=== PATIENT | female | born 1940 | race Caucasian/White ===

== ENCOUNTER 2018-12-16 09:16 | Day surgery (SDC) | payer BC, MEDICARE ==
[2018-12-15 14:46] LABS: BASOPHILS # (AUTO) 0.1 X10'3 (0-0.2); BASOPHILS % (AUTO) 1.4 % (0-1); EOSINOPHILS # (AUTO) 0.2 X10'3 (0-0.9); EOSINOPHILS % (AUTO) 4.2 % (0-6); LYMPHOCYTES # (AUTO) 1.5 X10'3 (1.1-4.8); MEAN CORPUSCULAR HEMOGLOBIN 30.6 PG (27.0-31.0); MEAN CORPUSCULAR HGB CONC 33.6 g/dL (33.0-36.5); MONOCYTES # (AUTO) 0.4 X10'3 (0-0.9); MONOCYTES % (AUTO) 10.2 % (2-12); NEUTROPHILS # (AUTO) 1.8 X10'3 (1.8-7.7); NEUTROPHILS % (AUTO) 45.2 % (42-75); PRE OP HEMATOCRIT 41.6 % (35.0-45.0); PRE OP PLATELET COUNT 273 X10'3 (140-440); RED BLOOD COUNT 4.57 X10'6 (4.20-5.60); RED CELL DISTRIBUTION WIDTH 12.8 % (11.5-14.5)
[2018-12-15 14:59] LABS: ALBUMIN 3.7 G/DL (3.4-5.0); ALBUMIN/GLOBULIN RATIO 1.1 (1.1-1.5); ALKALINE PHOSPHATASE 60 IU/L (46-116); BLOOD UREA NITROGEN 15 MG/DL (7-18); BUN/CREATININE RATIO 16.5 (6.6-38.0); CALCIUM 8.9 MG/DL (8.5-10.1); CHLORIDE 105 MMOL/L (99-107); CREATININE 0.91 MG/DL (0.40-0.90); PRE OP ALT 25 U/L (30-65); PRE OP ANION GAP 6 (8-16); PRE OP AST 21 U/L (10-37); PRE OP BILIRUB, TOTAL 0.4 MG/DL (0.0-1.0); PRE OP GLUCOSE 120 MG/DL (70-104); PRE OP POTASSIUM 3.6 MMOL/L (3.4-5.1); PRE OP SODIUM 142 MMOL/L (135-145); TOTAL CARBON DIOXIDE 30.9 MMOL/L (24-32); TOTAL PROTEIN 7.1 G/DL (6.4-8.2); eGFR 60 ML/MIN
[~2018-12-16] VITALS: Ht 167.6 cm; Wt 68.0 kg
[~2018-12-16 09:16] MED LIST: CHOL10002 PO; MULT-1085 PO; NIA500ERT PO; ceFAZolin 1GM/D5W- ADD-VANTAGE 50 ML IV ONE; famotidine 20mg tablet PO ONE; ringers solution, lacted 1,000 ML IV SCH
[2018-12-16 09:45] VITALS: BP 147/87
[2018-12-16] MEDS ORDERED: ringers solution, lacted 1,000 ML IV SCH (10:29)
[2018-12-16] MEDS ORDERED: morphine 4 MG/ML inj SYRINge IV PRN (10:30)
[2018-12-16] MEDS ORDERED: ondansetron/PF 4mg/2ml inj IV PRN (10:30)
[2018-12-16] MEDS ORDERED: BUPIVAcaine/PF 2.5mg/ml (0.25%) 10ml vial ONE (11:37)
[2018-12-16] MEDS ORDERED: midazolam 2 mg/2 ml injection ONE (12:04)
[2018-12-16] MEDS ORDERED: fentaNYL/PF 50MCG/1 ML 2ML syringe ONE (12:04)
[2018-12-16] MEDS ORDERED: LIDOcaine 1% 30ml preserv. free vial ONE (12:08)
[2018-12-16 12:28] VITALS: BP 120/62
--- NOTE | 2018-12-16 12:28 | NUR ---
Received from OR via , accompanied by Anesthesiologist DR DONALDSON and report given by Anesthesiolgist. PT IS AWAKE, ALERT, MOVES EXT X 4, SKIN COOL TO TOUCH, GOOD COLOR AND MOTION, PROVIDED WARM BLANKETS FOR PATIENT, PIV RIGHT 20G PATENT WITH LR 100ML/HR, NO C/O PAIN.
[2018-12-16 12:38] VITALS: BP 134/77
[2018-12-16] MEDS ORDERED: propofol inj 20 ML IV ONE (12:38)
[2018-12-16 12:48] VITALS: BP 128/68
[2018-12-16 12:58] VITALS: BP 146/75
--- NOTE | 2018-12-16 12:58 | NUR ---
PATIENT IS AWAKE AND ORIENTED, NO C/O PAIN, PIV REMOVED, UP INDEP TO GET DRESSED, DISCHARGE INSTRUCTIONS REVIEWED WITH PATIENT, ICE SENT HOME WITH PT, NO C/O PAIN.
== END 2018-12-16 12:58 | disposition home or self-care (01) ==
LOC: PRE-OP 09:16
PROVIDERS: ATTEND Orthopaedic Surgery Hand Surgery
DX: G56.03 Carpal tunnel syndrome, bilateral upper limbs (principal); M19.042 Primary osteoarthritis, left hand; Z87.891 Personal history of nicotine dependence; Z72.89 Other problems related to lifestyle; Z79.899 Other long term (current) drug therapy; Z98.890 Other specified postprocedural states
CPT/HCPCS: 36415; 64721; 80053; 82948; 85025; 93005; A6222; A6449; J0690; J2250; J2704; J3010; J3490; J7120

== ENCOUNTER 2019-03-03 08:34 | Day surgery (SDC) | payer MEDICARE, BC ==
[2019-02-24 10:51] LABS: BASOPHILS # (AUTO) 0.1 X10'3 (0-0.2); BASOPHILS % (AUTO) 1.1 % (0-1); EOSINOPHILS # (AUTO) 0.1 X10'3 (0-0.9); EOSINOPHILS % (AUTO) 2.6 % (0-6); LYMPHOCYTES # (AUTO) 1.6 X10'3 (1.1-4.8); LYMPHOCYTES % (AUTO) 32.4 % (21-51); MEAN CORPUSCULAR HEMOGLOBIN 31.3 PG (27.0-31.0); MEAN CORPUSCULAR HGB CONC 34.5 g/dL (33.0-36.5); MEAN CORPUSCULAR VOLUME 90.9 FL (78-98); MONOCYTES # (AUTO) 0.6 X10'3 (0-0.9); NEUTROPHILS # (AUTO) 2.6 X10'3 (1.8-7.7); NEUTROPHILS % (AUTO) 51.9 % (42-75); PRE OP HEMATOCRIT 41.8 % (35.0-45.0); PRE OP HEMOGLOBIN 14.4 g/dL (12.0-16.0); PRE OP PLATELET COUNT 253 X10'3 (140-440); RED CELL DISTRIBUTION WIDTH 14.1 % (11.5-14.5)
[2019-02-24 11:05] LABS: ALBUMIN 3.7 G/DL (3.4-5.0); ALKALINE PHOSPHATASE 62 IU/L (46-116); BLOOD UREA NITROGEN 14 MG/DL (7-18); BUN/CREATININE RATIO 20.6 (6.6-38.0); CALCIUM 8.9 MG/DL (8.5-10.1); CHLORIDE 102 MMOL/L (99-107); CREATININE 0.68 MG/DL (0.40-0.90); PRE OP ALT 31 U/L (30-65); PRE OP ANION GAP 3 (8-16); PRE OP AST 24 U/L (10-37); PRE OP BILIRUB, TOTAL 0.4 MG/DL (0.0-1.0); PRE OP GLUCOSE 96 MG/DL (70-104); PRE OP POTASSIUM 4.2 MMOL/L (3.4-5.1); PRE OP SODIUM 135 MMOL/L (135-145); TOTAL CARBON DIOXIDE 29.9 MMOL/L (24-32); TOTAL PROTEIN 7.3 G/DL (6.4-8.2); eGFR 84 ML/MIN
[~2019-03-03] VITALS: Ht 167.6 cm; Wt 68.0 kg
[~2019-03-03 08:34] MED LIST changes: +LIDOcaine 1% 30ml preserv. free vial ONE; -ceFAZolin 1GM/D5W- ADD-VANTAGE 50 ML IV ONE; -famotidine 20mg tablet PO ONE; -ringers solution, lacted 1,000 ML IV SCH
[2019-03-03 08:50] VITALS: BP 138/73
[2019-03-03] MEDS ORDERED: ringers solution, lacted 1,000 ML IV SCH (09:15)
[2019-03-03] MEDS ORDERED: famotidine 20mg tablet PO ONE (09:15)
[2019-03-03] MEDS ORDERED: ceFAZolin 1GM/D5W- ADD-VANTAGE 50 ML IV ONE (09:15)
[2019-03-03] MEDS ORDERED: BUPIVAcaine/PF 2.5mg/ml (0.25%) 10ml vial ONE (09:58)
[2019-03-03] MEDS ORDERED: fentaNYL/PF 50MCG/1 ML 2ML syringe ONE (10:09)
[2019-03-03] MEDS ORDERED: midazolam 2 mg/2 ml injection ONE ×2 (10:10→10:21)
[2019-03-03 10:40] VITALS: BP 129/58
--- NOTE | 2019-03-03 10:40 | NUR ---
Received from OR via [facility] , accompanied by Anesthesiologist YUNIOR and report given by Anesthesiolgist. PATIENT WITH 20G PIV IN RIGHT UE RUNNING LR AT 100. DENIES PAIN. VSS. RIGHT WRIST DRESSING IS CDI. NUMBNESS TO FINGERS BUT HAS + MOVEMENT. Addendum: 03/03/19 at 1048 by Tom Vallejo RN, RN Amended: Links added.
[2019-03-03 10:50] VITALS: BP 128/80
[2019-03-03 11:00] VITALS: BP 122/78
--- NOTE | 2019-03-03 11:10 | NUR ---
ALL DC CRITERIA HAS BEEN MET. IV TAKEN OUT WITHOUT COMPLICATIONS. ALL INSTRUCTIONS COVERED AND ALL QUESTIONS ANSWERED. DRESSINGS CDI. OUT VIA WHEELCHAIR TO PERSONAL VEHICLE WHERE PATIENT WAS SECURED IN AND DRIVEN HOME BY FAMILY. Addendum: 03/03/19 at 1124 by Tom Vallejo RN, RN Amended: Links added.
== END 2019-03-03 11:10 | disposition home or self-care (01) ==
LOC: PAS 08:34
PROVIDERS: ATTEND Orthopaedic Surgery Hand Surgery
DX: G56.01 Carpal tunnel syndrome, right upper limb (principal); M19.042 Primary osteoarthritis, left hand; Z98.890 Other specified postprocedural states; Z87.891 Personal history of nicotine dependence; Z72.89 Other problems related to lifestyle; Z79.899 Other long term (current) drug therapy; Z85.3 Personal history of malignant neoplasm of breast
CPT/HCPCS: 36415; 64721; 80053; 82948; 85025; A6222; J0690; J2250; J3010; J3490; A6449; J7120

== ENCOUNTER 2023-11-08 13:27 | Outpatient (CLI) | payer BC, MEDICARE ==
[~2023-11-08 13:27] MED LIST changes: -LIDOcaine 1% 30ml preserv. free vial ONE
[2023-11-08] MEDS ORDERED: iohexol 300mg/ml 100ml inj. ONE (13:45)
== END 2023-11-08 23:59 | disposition home or self-care (01) ==
LOC: RAD 13:27
PROVIDERS: ATTEND Student in an Organized Health Care Education/Training Program
DX: K76.89 Other specified diseases of liver (principal); R10.31 Right lower quadrant pain
CPT/HCPCS: 74178; J3490; Q9967

== ENCOUNTER 2023-11-09 17:55 | Inpatient (IN) | payer MEDICARE, BC ==
[~2023-11-09] VITALS: Ht 167.6 cm; Wt 68.0 kg
[2023-11-09 19:46] LABS: BASOPHILS % (AUTO) 0.4 % (0-1); EOSINOPHILS # (AUTO) 0.2 X10'3 (0-0.9); EOSINOPHILS % (AUTO) 1.9 % (0-6); HEMATOCRIT 37.8 % (35.0-45.0); HEMOGLOBIN 12.8 g/dl (12.0-16.0); LYMPHOCYTES # (AUTO) 1.1 X10'3 (1.1-4.8); LYMPHOCYTES % (AUTO) 12.2 % (21-51); MEAN CORPUSCULAR VOLUME 91.1 FL (78-98); MEAN PLATELET VOLUME 7.5 FL (7.4-10.4); MONOCYTES # (AUTO) 0.7 X10'3 (0-0.9); MONOCYTES % (AUTO) 7.9 % (2-12); NEUTROPHILS # (AUTO) 6.8 X10'3 (1.8-7.7); NEUTROPHILS % (AUTO) 77.6 % (42-75); PLATELET COUNT 401 X10'3 (140-440); RED BLOOD COUNT 4.15 X10'6 (4.20-5.60); RED CELL DISTRIBUTION WIDTH 12.7 % (11.5-14.5); WHITE BLOOD COUNT 8.8 X10'3 (4.5-11.0)
[2023-11-09 19:56] LABS: ALANINE AMINOTRANSFERASE 21 U/L (12-78); ALBUMIN 3.2 G/DL (3.4-5.0); ALBUMIN/GLOBULIN RATIO 0.7 (1.1-1.5); ALKALINE PHOSPHATASE 72 IU/L (46-116); ANION GAP 7 (8-16); ASPARTATE AMINO TRANSFERASE 16 U/L (10-37); BILIRUBIN,TOTAL 0.4 MG/DL (0.1-1.0); BLOOD UREA NITROGEN 4 MG/DL (7-18); BUN/CREATININE RATIO 6.8 (10.0-20.0); CALCIUM 8.9 MG/DL (8.5-10.1); CHLORIDE 100 MMOL/L (99-107); CREATININE 0.59 MG/DL (0.40-0.90); GLUCOSE 110 MG/DL (70-104); LIPASE 19 U/L (16-77); POTASSIUM 4.1 MMOL/L (3.5-5.1); SODIUM 137 MMOL/L (135-145); TOTAL PROTEIN 7.6 G/DL (6.4-8.2); eCRCL 69 ML/MIN; eGFR > 90 ML/MIN
[2023-11-10] MEDS: diatr meglu/diatrizoate 30ml oral sol.-(3 dose) bottle PO SCH (00:21)
[2023-11-10] MEDS ORDERED: iohexol 300mg/ml 100ml inj. ONE ×2 (01:46→12:27)
[2023-11-10 02:15] LABS: BILIRUBIN,URINE NEGATIVE (Neg); CLARITY,URINE CLEAR (Clear); COLOR,URINE YELLOW (Yellow); GLUCOSE, URINE NEGATIVE (Neg); KETONES,URINE NEGATIVE (Neg); LEUKOCYTE ESTERASE ,URINE NEGATIVE (Neg); NITRITES, URINE NEGATIVE (Neg); OCCULT BLOOD,URINE NEGATIVE (Neg); PROTEIN,URINE NEGATIVE (Neg); UROBILINOGEN,URINE 0.2 E.U/dL (0.2-1.0)
[2023-11-10 02:16] LABS: UA COLLECTION TYPE CLN CATCH MIDSTREAM
[2023-11-10] MEDS ORDERED: mag hydrox/Alum hydrox/simeth 30ml oral suspension PO PRN (05:00)
[2023-11-10] MEDS ORDERED: potassium Cl 20 mEq SR tablet PO PRN ×2 (05:00)
[2023-11-10] MEDS ORDERED: ondansetron/PF 4mg/2ml inj IV PRN (05:00)
[2023-11-10] MEDS ORDERED: magnesium Cl slow-release 64mg tablet PO PRN (05:00)
[2023-11-10] MEDS ORDERED: acetaminophen 325mg tablet PO PRN (05:00)
[2023-11-10] MEDS ORDERED: potassium Cl 40MEQ/1/2NS 520ml 520 ML IV PRN (05:00)
[2023-11-10] MEDS ORDERED: magnesium 2GM in 50ml NS 50 ML IV PRN (05:00)
[2023-11-10] MEDS ORDERED: magnesium 4gm in 100ml NS 100 ML IV PRN (05:00)
[2023-11-10] MEDS ORDERED: magnesium hydroxide 30ml (MOM) UD suspension PO PRN (05:00)
[2023-11-10] MEDS ORDERED: morphine 2 MG/ML inj. syringe IV PRN ×2 (05:00)
[2023-11-10] MEDS: piperacillin/tazo 3.375gm/50ml 50 ML IV ONE (05:17)
[2023-11-10] MEDS: ondansetron/PF 4mg/2ml inj IV ONE (05:25)
[2023-11-10] MEDS: morphine 4 MG/ML inj SYRINge IV ONE (05:25)
[2023-11-10] MEDS: normal saline 1000ml 1,000 ML IV SCH (05:32)
[2023-11-10] MEDS: K and/or MAG REPLACEMENT MC SCH (08:00)
[2023-11-10] MEDS: diatrozoate meglu/diatrozoate sod (37% iodine) 120ML oral solution PO ONE (10:07)
[2023-11-10] MEDS: diatr meglu/diatrizoate 30ml oral sol.-(3 dose) bottle PO ONE (10:07)
[2023-11-10 11:38] VITALS: BP 125/88; PULSE 81; RESP 16; O2SAT 100
[2023-11-10] MEDS ORDERED: fentaNYL/PF 50MCG/1 ML 2ML syringe ONE ×2 (11:39→12:53)
[2023-11-10] MEDS ORDERED: midazolam 1 mg/ML 2ml injection ONE (11:39)
[2023-11-10] MEDS: piperacillin/tazo 4.5gm/100ml 100 ML IV SCH (12:00)
[2023-11-10 12:40] VITALS: BP 130/70; PULSE 85; RESP 16; O2SAT 99
[2023-11-10 12:45] VITALS: BP 147/74; PULSE 87; RESP 16; O2SAT 99
[2023-11-10 12:50] VITALS: BP 149/63; PULSE 89; RESP 16; O2SAT 97
[2023-11-10 12:55] VITALS: BP 148/84; PULSE 91; RESP 16; O2SAT 97
[2023-11-10 13:00] VITALS: BP 153/77; PULSE 91; RESP 16; O2SAT 96
[2023-11-10] MEDS: temazepam 15mg capsule PO ONE (21:01)
[2023-11-11 07:58] LABS: BASOPHILS % (AUTO) 0.4 % (0-1); EOSINOPHILS # (AUTO) 0.1 X10'3 (0-0.9); HEMATOCRIT 38.2 % (35.0-45.0); HEMOGLOBIN 12.7 g/dl (12.0-16.0); LYMPHOCYTES # (AUTO) 0.9 X10'3 (1.1-4.8); MEAN CORPUSCULAR HEMOGLOBIN 31.1 PG (27.0-31.0); MEAN CORPUSCULAR HGB CONC 33.3 g/dL (33.0-36.5); MEAN CORPUSCULAR VOLUME 93.3 FL (78-98); MEAN PLATELET VOLUME 7.6 FL (7.4-10.4); MONOCYTES # (AUTO) 0.8 X10'3 (0-0.9); MONOCYTES % (AUTO) 7.6 % (2-12); NEUTROPHILS # (AUTO) 8.5 X10'3 (1.8-7.7); PLATELET COUNT 377 X10'3 (140-440); RED BLOOD COUNT 4.09 X10'6 (4.20-5.60); RED CELL DISTRIBUTION WIDTH 13.2 % (11.5-14.5); WHITE BLOOD COUNT 10.4 X10'3 (4.5-11.0)
[2023-11-11 08:36] LABS: ALBUMIN 2.6 G/DL (3.4-5.0); ANION GAP 14 (8-16); BLOOD UREA NITROGEN 7 MG/DL (7-18); BUN/CREATININE RATIO 10.8 (10.0-20.0); CALCIUM 8.4 MG/DL (8.5-10.1); CHLORIDE 102 MMOL/L (99-107); CREATININE 0.65 MG/DL (0.40-0.90); GLUCOSE 82 MG/DL (70-104); MAGNESIUM 2.3 MG/DL (1.5-2.4); POTASSIUM 3.9 MMOL/L (3.5-5.1); SODIUM 138 MMOL/L (135-145); TOTAL CARBON DIOXIDE 21.8 MMOL/L (24-32); eCRCL 62 ML/MIN; eGFR 87 ML/MIN
[2023-11-11] MEDS ORDERED: ALEN70TA37 PO (19:17)
[2023-11-11] MEDS: Melatonin 3mg tablet PO SCH (20:55)
[2023-11-12 06:31] LABS: BASOPHILS # (AUTO) 0.1 X10'3 (0-0.2); BASOPHILS % (AUTO) 0.7 % (0-1); EOSINOPHILS # (AUTO) 0.2 X10'3 (0-0.9); HEMOGLOBIN 12.6 g/dl (12.0-16.0); LYMPHOCYTES # (AUTO) 0.9 X10'3 (1.1-4.8); MEAN CORPUSCULAR VOLUME 91.6 FL (78-98); RED CELL DISTRIBUTION WIDTH 12.8 % (11.5-14.5)
[2023-11-12 06:34] LABS: EOSINOPHILS % (AUTO) 1.9 % (0-6); HEMATOCRIT 37.5 % (35.0-45.0); MEAN CORPUSCULAR HEMOGLOBIN 30.8 PG (27.0-31.0); MEAN CORPUSCULAR HGB CONC 33.6 g/dL (33.0-36.5); MEAN PLATELET VOLUME 8.2 FL (7.4-10.4); MONOCYTES # (AUTO) 1.1 X10'3 (0-0.9); MONOCYTES % (AUTO) 12.3 % (2-12); NEUTROPHILS # (AUTO) 6.3 X10'3 (1.8-7.7); NEUTROPHILS % (AUTO) 74.1 % (42-75); PLATELET COUNT 392 X10'3 (140-440); RED BLOOD COUNT 4.09 X10'6 (4.20-5.60); WHITE BLOOD COUNT 8.5 X10'3 (4.5-11.0)
[2023-11-12 06:51] LABS: ALBUMIN 2.5 G/DL (3.4-5.0); ANION GAP 10 (8-16); BLOOD UREA NITROGEN 5 MG/DL (7-18); BUN/CREATININE RATIO 8.3 (10.0-20.0); CALCIUM 8.1 MG/DL (8.5-10.1); CHLORIDE 103 MMOL/L (99-107); GLUCOSE 106 MG/DL (70-104); MAGNESIUM 2.4 MG/DL (1.5-2.4); POTASSIUM 3.6 MMOL/L (3.5-5.1); SODIUM 139 MMOL/L (135-145); TOTAL CARBON DIOXIDE 26.3 MMOL/L (24-32); eCRCL 68 ML/MIN; eGFR > 90 ML/MIN
[2023-11-12 08:30] VITALS: BP 137/67; PULSE 91; RESP 17; TEMP 98.3; O2SAT 94
[2023-11-12 10:00] VITALS: BP 116/64; PULSE 92; RESP 15; TEMP 99.1; O2SAT 98
[2023-11-12 18:00] VITALS: BP 119/59; PULSE 89; RESP 18; TEMP 98.8; O2SAT 94
[2023-11-12] MEDS: enoxaparin 40mg/0.4ml syringe SUBCUT SCH (19:51)
[2023-11-12 22:00] VITALS: BP 118/46; PULSE 82; RESP 16; TEMP 98.2; O2SAT 94
[2023-11-13 06:00] VITALS: BP 121/66; PULSE 79; RESP 17; TEMP 97.7; O2SAT 95
[2023-11-13 06:27] LABS: BASOPHILS # (AUTO) 0.1 X10'3 (0-0.2); BASOPHILS % (AUTO) 0.8 % (0-1); EOSINOPHILS # (AUTO) 0.3 X10'3 (0-0.9); EOSINOPHILS % (AUTO) 3.8 % (0-6); HEMATOCRIT 33.6 % (35.0-45.0); HEMOGLOBIN 11.6 g/dl (12.0-16.0); LYMPHOCYTES # (AUTO) 1.1 X10'3 (1.1-4.8); LYMPHOCYTES % (AUTO) 15.3 % (21-51); MEAN CORPUSCULAR HEMOGLOBIN 31.2 PG (27.0-31.0); MEAN CORPUSCULAR HGB CONC 34.4 g/dL (33.0-36.5); MEAN CORPUSCULAR VOLUME 90.9 FL (78-98); MEAN PLATELET VOLUME 8.3 FL (7.4-10.4); MONOCYTES # (AUTO) 0.9 X10'3 (0-0.9); MONOCYTES % (AUTO) 13.3 % (2-12); NEUTROPHILS # (AUTO) 4.6 X10'3 (1.8-7.7); NEUTROPHILS % (AUTO) 66.8 % (42-75); PLATELET COUNT 385 X10'3 (140-440); RED CELL DISTRIBUTION WIDTH 12.3 % (11.5-14.5); WHITE BLOOD COUNT 6.9 X10'3 (4.5-11.0)
[2023-11-13 06:31] LABS: ALBUMIN 2.2 G/DL (3.4-5.0); ANION GAP 4 (8-16); BLOOD UREA NITROGEN 1 MG/DL (7-18); BUN/CREATININE RATIO 1.6 (10.0-20.0); CALCIUM 7.8 MG/DL (8.5-10.1); CHLORIDE 103 MMOL/L (99-107); CREATININE 0.62 MG/DL (0.40-0.90); GLUCOSE 104 MG/DL (70-104); MAGNESIUM 2.1 MG/DL (1.5-2.4); POTASSIUM 3.2 MMOL/L (3.5-5.1); SODIUM 135 MMOL/L (135-145); TOTAL CARBON DIOXIDE 28.5 MMOL/L (24-32); eCRCL 65 ML/MIN; eGFR > 90 ML/MIN
[2023-11-13 07:28] VITALS: RESP 17; O2SAT 95
[2023-11-13] MEDS ORDERED: magnesium Cl slow-release 64mg tablet PO PRN (09:40)
[2023-11-13] MEDS ORDERED: potassium Cl 20 mEq SR tablet PO PRN (09:40)
[2023-11-13] MEDS ORDERED: magnesium 4gm in 100ml NS 100 ML IV PRN (09:40)
[2023-11-13] MEDS ORDERED: magnesium 2GM in 50ml NS 50 ML IV PRN (09:40)
[2023-11-13] MEDS ORDERED: potassium Cl 40MEQ/1/2NS 520ml 520 ML IV PRN (09:40)
[2023-11-13] MEDS: potassium Cl 20 mEq SR tablet PO PRN (09:58)
[2023-11-13 10:00] VITALS: BP 116/57; PULSE 81; RESP 18; TEMP 97.4; O2SAT 96
[2023-11-13] MEDS: metroNIDAZOLE-Flagyl 750mg/NS 150 ML IV SCH (16:05)
[2023-11-13 18:00] VITALS: BP 125/71; PULSE 83; RESP 18; TEMP 97.5; O2SAT 97
[2023-11-13 20:00] VITALS: RESP 17; RESP 18; O2SAT 94; O2SAT 97
[2023-11-13] MEDS: ciprofloxacin lact 400MG/200ML 200 ML IV SCH (20:00)
[2023-11-13 22:02] VITALS: BP 112/57; PULSE 76; RESP 17; TEMP 97.9; O2SAT 94
[2023-11-14 06:00] VITALS: BP 141/64; PULSE 72; RESP 16; TEMP 97.7; O2SAT 96
[2023-11-14 06:55] VITALS: RESP 16; O2SAT 96
[2023-11-14 07:09] LABS: ALBUMIN 2.2 G/DL (3.4-5.0); ANION GAP 9 (8-16); BLOOD UREA NITROGEN 0 MG/DL (7-18); CALCIUM 7.3 MG/DL (8.5-10.1); CHLORIDE 106 MMOL/L (99-107); CREATININE 0.56 MG/DL (0.40-0.90); GLUCOSE 102 MG/DL (70-104); MAGNESIUM 2.2 MG/DL (1.5-2.4); POTASSIUM 4.1 MMOL/L (3.5-5.1); SODIUM 143 MMOL/L (135-145); TOTAL CARBON DIOXIDE 27.7 MMOL/L (24-32); eCRCL 73 ML/MIN; eGFR > 90 ML/MIN
[2023-11-14 07:11] LABS: BASOPHILS # (AUTO) 0.1 X10'3 (0-0.2); BASOPHILS % (AUTO) 1.3 % (0-1); EOSINOPHILS # (AUTO) 0.2 X10'3 (0-0.9); EOSINOPHILS % (AUTO) 4.5 % (0-6); HEMATOCRIT 34.6 % (35.0-45.0); HEMOGLOBIN 11.9 g/dl (12.0-16.0); LYMPHOCYTES # (AUTO) 1.1 X10'3 (1.1-4.8); LYMPHOCYTES % (AUTO) 22.3 % (21-51); MEAN CORPUSCULAR HEMOGLOBIN 31.7 PG (27.0-31.0); MEAN CORPUSCULAR HGB CONC 34.6 g/dL (33.0-36.5); MEAN CORPUSCULAR VOLUME 91.5 FL (78-98); MEAN PLATELET VOLUME 8.5 FL (7.4-10.4); MONOCYTES # (AUTO) 0.7 X10'3 (0-0.9); MONOCYTES % (AUTO) 12.8 % (2-12); NEUTROPHILS % (AUTO) 59.1 % (42-75); PLATELET COUNT 395 X10'3 (140-440); RED BLOOD COUNT 3.77 X10'6 (4.20-5.60); RED CELL DISTRIBUTION WIDTH 12.8 % (11.5-14.5); WHITE BLOOD COUNT 5.1 X10'3 (4.5-11.0)
[2023-11-14 19:23] VITALS: BP 120/58; PULSE 95; RESP 16; TEMP 98.3; O2SAT 95
[2023-11-14 20:00] VITALS: RESP 16; O2SAT 95
[2023-11-14] MEDS: diatr meglu/diatrizoate 30ml oral sol.-(3 dose) bottle PO SCH (20:50)
[2023-11-14 22:00] VITALS: BP 119/65; PULSE 71; RESP 15; TEMP 97.7; O2SAT 96
[2023-11-15 04:45] LABS: ALBUMIN 2.3 G/DL (3.4-5.0); ANION GAP 10 (8-16); BLOOD UREA NITROGEN 2 MG/DL (7-18); BUN/CREATININE RATIO 3.3 (10.0-20.0); CALCIUM 8.4 MG/DL (8.5-10.1); CHLORIDE 107 MMOL/L (99-107); CREATININE 0.61 MG/DL (0.40-0.90); GLUCOSE 113 MG/DL (70-104); POTASSIUM 3.7 MMOL/L (3.5-5.1); SODIUM 144 MMOL/L (135-145); eCRCL 67 ML/MIN; eGFR > 90 ML/MIN
[2023-11-15 05:11] LABS: BASOPHILS # (AUTO) 0.1 X10'3 (0-0.2); BASOPHILS % (AUTO) 1.5 % (0-1); EOSINOPHILS # (AUTO) 0.2 X10'3 (0-0.9); EOSINOPHILS % (AUTO) 4.9 % (0-6); HEMATOCRIT 34.6 % (35.0-45.0); HEMOGLOBIN 11.8 g/dl (12.0-16.0); LYMPHOCYTES # (AUTO) 1.3 X10'3 (1.1-4.8); LYMPHOCYTES % (AUTO) 26.4 % (21-51); MEAN CORPUSCULAR HEMOGLOBIN 31.1 PG (27.0-31.0); MEAN CORPUSCULAR HGB CONC 34.1 g/dL (33.0-36.5); MEAN CORPUSCULAR VOLUME 91.1 FL (78-98); MEAN PLATELET VOLUME 8.5 FL (7.4-10.4); MONOCYTES # (AUTO) 0.7 X10'3 (0-0.9); MONOCYTES % (AUTO) 13.4 % (2-12); NEUTROPHILS # (AUTO) 2.7 X10'3 (1.8-7.7); NEUTROPHILS % (AUTO) 53.8 % (42-75); PLATELET COUNT 416 X10'3 (140-440); RED CELL DISTRIBUTION WIDTH 12.5 % (11.5-14.5)
[2023-11-15 07:00] VITALS: BP 109/53; PULSE 59; RESP 16; TEMP 97.9; O2SAT 95
[2023-11-15] MEDS ORDERED: iohexol 300mg/ml 100ml inj. ONE (08:52)
[2023-11-15] MEDS ORDERED: METR-159 PO (10:53)
[2023-11-15] MEDS ORDERED: CIPR-202 PO (10:53)
[2023-11-15] MEDS ORDERED: SACC250C PO (11:12)
[2023-11-15 11:30] VITALS: BP 137/76; PULSE 77; RESP 16; TEMP 97.8; O2SAT 94
== END 2023-11-15 13:40 | disposition home or self-care (01) | DRG 372 ==
LOC: ER 17:56 → ED HOLD 11-10 05:06 → ORTHO 4S 11-12 08:10
PROVIDERS: ADMIT Internal Medicine; ATTEND Internal Medicine
PROC: 0D9J30Z Drainage of Appendix with Drainage Device, Percutaneous Approach (ICD-10-PCS; 2023-11-10)
PROC: BW211ZZ Computerized Tomography (CT Scan) of Abdomen and Pelvis using Low Osmolar Contrast (ICD-10-PCS; 2023-11-10)
PROC: BW211ZZ Computerized Tomography (CT Scan) of Abdomen and Pelvis using Low Osmolar Contrast (ICD-10-PCS; principal; 2023-11-15)
DX: K35.33 Acute appendicitis with perforation, localized peritonitis, and gangrene, with abscess (principal); E44.1 Mild protein-calorie malnutrition; Z60.2 Problems related to living alone; E87.6 Hypokalemia; Z66 Do not resuscitate; Z85.3 Personal history of malignant neoplasm of breast; Z79.899 Other long term (current) drug therapy; Z87.891 Personal history of nicotine dependence; Z68.24 Body mass index [BMI] 24.0-24.9, adult
CPT/HCPCS: 36415; 49406; 74177; 80048; 80053; 81003; 83605; 83690; 83735; 84145; 85025; 86885; 86900; 86901; 87040; 87070; 87077; 87081; 87186; 99285; A4421; A4615; A6209; A6258; C1729; C1769; G0378; J0744; J1650; J2250; J2270; J2405; J2543; J3010; J3490; J7030; Q9963; Q9967

== ENCOUNTER 2023-12-13 10:43 | Outpatient (CLI) | payer BC, MEDICARE ==
[~2023-12-13 10:43] MED LIST changes: +ALEN70TA37 PO; +CIPR-202 PO; +METR-159 PO; +SACC250C PO
[2023-12-13] MEDS ORDERED: iohexol 300mg/ml 100ml inj. ONE (11:02)
== END 2023-12-13 23:59 | disposition home or self-care (01) ==
LOC: RAD 10:43
PROVIDERS: ATTEND Surgery
DX: T81.40XA Infection following a procedure, unspecified, initial encounter (principal); K76.89 Other specified diseases of liver; K38.8 Other specified diseases of appendix; N28.1 Cyst of kidney, acquired; D25.9 Leiomyoma of uterus, unspecified; Y83.8 Other surgical procedures as the cause of abnormal reaction of the patient, or of later complication, without mention of misadventure at the time of the procedure; Y82.8 Other medical devices associated with adverse incidents
CPT/HCPCS: 74177; J3490; Q9967

== ENCOUNTER 2024-01-24 06:07 | Day surgery (SDC) | payer BC, MEDICARE ==
[2024-01-17 10:21] LABS: BASOPHILS # (AUTO) 0.1 X10'3 (0-0.2); BASOPHILS % (AUTO) 1.1 % (0-1); EOSINOPHILS # (AUTO) 0.2 X10'3 (0-0.9); EOSINOPHILS % (AUTO) 3.3 % (0-6); LYMPHOCYTES # (AUTO) 1.7 X10'3 (1.1-4.8); LYMPHOCYTES % (AUTO) 28.6 % (21-51); MEAN CORPUSCULAR HEMOGLOBIN 30.8 PG (27.0-31.0); MEAN CORPUSCULAR HGB CONC 33.9 g/dL (33.0-36.5); MEAN CORPUSCULAR VOLUME 90.9 FL (78-98); MEAN PLATELET VOLUME 7.5 FL (7.4-10.4); MONOCYTES # (AUTO) 0.6 X10'3 (0-0.9); MONOCYTES % (AUTO) 9.7 % (2-12); NEUTROPHILS # (AUTO) 3.4 X10'3 (1.8-7.7); NEUTROPHILS % (AUTO) 57.3 % (42-75); PRE OP HEMATOCRIT 41.9 % (35.0-45.0); PRE OP HEMOGLOBIN 14.2 g/dL (12.0-16.0); PRE OP PLATELET COUNT 271 X10'3 (140-440); PRE OP WHITE BLOOD COUNT 5.9 10'3 (4.8-10.8); RED BLOOD COUNT 4.61 X10'6 (4.20-5.60); RED CELL DISTRIBUTION WIDTH 14.3 % (11.5-14.5)
[2024-01-17 10:32] LABS: PRE OP PROTIME 10.3 SECONDS (9.0-12.0)
[2024-01-17 10:37] LABS: ALBUMIN 3.6 G/DL (3.4-5.0); ALBUMIN/GLOBULIN RATIO 0.9 (1.1-1.5); ALKALINE PHOSPHATASE 51 IU/L (46-116); BLOOD UREA NITROGEN 15 MG/DL (7-18); BUN/CREATININE RATIO 22.7 (10.0-20.0); CALCIUM 8.7 MG/DL (8.5-10.1); CHLORIDE 102 MMOL/L (99-107); CREATININE 0.66 MG/DL (0.40-0.90); PRE OP ALT 30 U/L (30-65); PRE OP ANION GAP 8 (8-16); PRE OP AST 22 U/L (10-37); PRE OP BILIRUB, TOTAL 0.5 MG/DL (0.0-1.0); PRE OP GLUCOSE 102 MG/DL (70-104); PRE OP POTASSIUM 4.3 MMOL/L (3.4-5.1); PRE OP SODIUM 137 MMOL/L (135-145); TOTAL CARBON DIOXIDE 27.4 MMOL/L (24-32); TOTAL PROTEIN 7.6 G/DL (6.4-8.2); eGFR 86 ML/MIN
[2024-01-17 10:39] LABS: BILIRUBIN,URINE NEGATIVE (Neg); CLARITY,URINE CLEAR (Clear); COLOR,URINE YELLOW (Yellow); GLUCOSE, URINE NEGATIVE (Neg); KETONES,URINE NEGATIVE (Neg); LEUKOCYTE ESTERASE ,URINE NEGATIVE (Neg); NITRITES, URINE NEGATIVE (Neg); OCCULT BLOOD,URINE NEGATIVE (Neg); PROTEIN,URINE NEGATIVE (Neg); UROBILINOGEN,URINE 0.2 E.U/dL (0.2-1.0)
[2024-01-17 10:51] LABS: UA COLLECTION TYPE CLN CATCH MIDSTREAM
[2024-01-24] VITALS (22 sets, daily range): BP systolic 123–165; BP diastolic 66–90; PULSE 65–89; RESP 14–18; TEMP 97.6; O2SAT 95–100
[~2024-01-24] VITALS: Ht 167.6 cm; Wt 67.1 kg
[~2024-01-24 06:07] MED LIST changes: +ANAS1TAB10 PO; -CIPR-202 PO; -METR-159 PO; -SACC250C PO
[2024-01-24] MEDS ORDERED: BUPIVAcaine/PF 2.5mg/ml (0.25%) 10ml vial ONE (06:57)
[2024-01-24] MEDS ORDERED: BUPIVACAINE liposomal/PF 13.3 MG/ML vial IM ONE (06:58)
[2024-01-24] MEDS: ceFOXitin 2GM-NS 100mL ADDvant 100 ML IV ONE (07:06)
[2024-01-24] MEDS: ringers solution, lacted 1,000 ML IV SCH (07:06)
[2024-01-24] MEDS: famotidine 20mg tablet PO ONE (07:06)
[2024-01-24] MEDS ORDERED: midazolam 1 mg/ML 2ml injection ONE (08:00)
[2024-01-24] MEDS ORDERED: fentaNYL/PF 50MCG/1 ML 2ML syringe ONE (08:00)
[2024-01-24] MEDS ORDERED: LIDOcaine 1%/PF 5ML 10 MG/ML VIAL ONE (08:02)
[2024-01-24] MEDS ORDERED: propofol inj 20 ML IV ONE (08:02)
[2024-01-24] MEDS ORDERED: rocuronium 10mg/ml inj IV ONE (08:02)
[2024-01-24] MEDS ORDERED: desflurane 240ml liquid inh. IH ONE (08:12)
[2024-01-24] MEDS ORDERED: enalaprilat dihydrate 2.5mg/2ml vial IV PRN (08:20)
[2024-01-24] MEDS ORDERED: labetalol 20mg/4ml (5mg/ml) syringe IV PRN (08:20)
[2024-01-24] MEDS ORDERED: proCHLORperazine 10 MG/2 ml inj IV PRN (08:20)
[2024-01-24] MEDS ORDERED: ringers solution, lacted 1,000 ML IV SCH (08:20)
[2024-01-24] MEDS ORDERED: morphine 2 MG/ML inj. syringe IV PRN (08:20)
[2024-01-24] MEDS ORDERED: meperidine/PF 25mg/ml syringe IV PRN ×2 (08:20)
[2024-01-24] MEDS ORDERED: morphine 4 MG/ML inj SYRINge IV PRN (08:20)
[2024-01-24] MEDS ORDERED: ondansetron/PF 4mg/2ml inj IV PRN (08:20)
[2024-01-24] MEDS ORDERED: ondansetron/PF 4mg/2ml inj ONE (08:36)
[2024-01-24] MEDS ORDERED: dexamethasone sod phosphate 4mg/ml inj. ONE (08:36)
[2024-01-24] MEDS ORDERED: acetaminophen 1,000mg/100ml IV 100 ML IV ONE (08:37)
[2024-01-24] MEDS: meperidine/PF 25mg/ml syringe IV PRN (10:35)
== END 2024-01-24 14:00 | disposition home or self-care (01) ==
LOC: PAS 06:07
PROVIDERS: ATTEND Surgery
DX: K35.33 Acute appendicitis with perforation, localized peritonitis, and gangrene, with abscess (principal); I25.2 Old myocardial infarction; I20.9 Angina pectoris, unspecified; Z85.3 Personal history of malignant neoplasm of breast; Z87.891 Personal history of nicotine dependence; Z79.899 Other long term (current) drug therapy; Z98.890 Other specified postprocedural states
CPT/HCPCS: 36415; 44970; 71046; 80053; 81003; 82948; 85025; 85610; 85730; 86885; 86900; 86901; 93005; C9290; J0131; J0694; J1100; J2175; J2250; J2405; J2704; J2710; J3010; J3490; J7030; J7120; S2900; Z7506; Z7508; Z7512; A4215; A4314; A4618